=== PATIENT | female | born 1985 | race Two or more races ===

== ENCOUNTER 2017-10-11 03:43 | Inpatient (IN) | payer OTHER ==
[~2017-10-11] VITALS: Ht 162.6 cm; Wt 156.0 kg
[2017-10-11] MEDS ORDERED: PRENATABS FA T1 EACH PO (03:58)
[2017-10-11] MEDS ORDERED: IRON 100 PLUS1 EACH PO (03:59)
== END 2017-10-13 13:17 | DRG 775 ==
LOC: SURG-SUITE 03:43 → LDR 03:43 → SURG-SUITE 06:15
PROC: 0HQ9XZZ Repair Perineum Skin, External Approach (ICD-10-PCS; principal; 2017-10-11)
PROC: 10E0XZZ Delivery of Products of Conception, External Approach (ICD-10-PCS; 2017-10-11)
PROC: 4A1HXCZ Monitoring of Products of Conception, Cardiac Rate, External Approach (ICD-10-PCS; 2017-10-11)
PROC: 4A033R1 Measurement of Arterial Saturation, Peripheral, Percutaneous Approach (ICD-10-PCS; 2017-10-11)
DX: O70.0 First degree perineal laceration during delivery (principal); Z3A.37 37 weeks gestation of pregnancy; Z37.0 Single live birth